=== PATIENT | female | born 1955 | race Two or more races ===

== ENCOUNTER → 2017-01-17 | Outpatient (REF) | payer OTHER | LOC: M LAB REF 11:28 | PROVIDERS: ATTEND Internal Medicine Endocrinology, Diabetes & Metabolism | DX: E04.1 Nontoxic single thyroid nodule (principal) ==

== ENCOUNTER → 2017-03-16 | Outpatient (CLI) | payer OTHER ==
[~2017-03-16] VITALS: Ht 157.5 cm; Wt 64.9 kg
[~2017-03-16] MED LIST: ALEV220T26 PO; ASPI81TAEC PO; ATOR1TAB21 PO; CALC1CAP PO; CALC1CAP31 PO; CALC500C16 PO; FISH5CAP PO; LEVOTH PO; LISI-538 PO; MIRA3350 PO; MULT1TAB10 PO; NS 1,000 ML IV ONE; OMEP20CA3; PROPOFOL 200 MG/20 ML VIAL As Ordered ONE; RANI15TA PO; SYNT112T2 PO
--- NOTE | 2017-03-16 12:30 | ROOR ---
Patient Name: Yefri Capone Procedure Date: 03/16/2017 12:20 PM Date of : 1955 Age: 61 Room: [facility] Gender: Female Note Status: Finalized Procedure: Upper GI endoscopy Indications: Heartburn Providers: Vishal ECHEVERRIA MD Referring MD: Jerad Vidal MD Requesting Provider: Medicines: Monitored Anesthesia Care Complications: No immediate complications. Procedure: Pre-Anesthesia Assessment: - The heart rate, respiratory rate, oxygen saturations, blood pressure, adequacy of pulmonary ventilation, and response to care were monitored throughout the procedure. The Endoscope was introduced through the mouth, and advanced to the second part of duodenum. The upper GI endoscopy was accomplished without difficulty. The patient tolerated the procedure well. Findings: Mildly severe esophagitis was found at the gastroesophageal junction. Biopsies were taken with a cold forceps for histology. Patchy mild inflammation was found in the gastric antrum. Biopsies were taken with a cold forceps for Helicobacter pylori testing. The examined duodenum was normal. Impression: - Mild reflux esophagitis. Biopsied. - Mild patchy gastritis. Biopsied. - Normal examined duodenum. Recommendation: - Telephone endoscopist for pathology results in 2 weeks. - Continue present medications. Vishal Echeverria MD Vishal ECHEVERRIA MD 03/16/2017 12:30:17 PM This report has been signed electronically. Number of Addenda: 0 Note Initiated On: 03/16/2017 12:20 PM Estimated Blood Loss: Estimated blood loss: none.
--- NOTE | 2017-03-16 12:47 | ROOR ---
Patient Name: Yefri Capone Procedure Date: 03/16/2017 12:21 PM Date of : 1955 Age: 61 Room: [facility] Gender: Female Note Status: Finalized Procedure: Colonoscopy Indications: Screening for colorectal malignant neoplasm Providers: Vishal ECHEVERRIA MD Referring MD: Jerad Vidal MD Requesting Provider: Medicines: Monitored Anesthesia Care Complications: No immediate complications. Procedure: Pre-Anesthesia Assessment: - The heart rate, respiratory rate, oxygen saturations, blood pressure, adequacy of pulmonary ventilation, and response to care were monitored throughout the procedure. The Colonoscope was introduced through the anus and advanced to the cecum, identified by appendiceal orifice and ileocecal valve. The colonoscopy was performed without difficulty. The patient tolerated the procedure well. The quality of the bowel preparation was good. Findings: The perianal and digital rectal examinations were normal. A 12 mm polyp was found in the mid ascending colon. The polyp was flat. The polyp was removed with a piecemeal technique using a cold snare. Resection and retrieval were complete. Internal hemorrhoids were found during retroflexion. The hemorrhoids were medium-sized. The exam was otherwise without abnormality on direct and retroflexion views. Impression: - One 12 mm polyp in the mid ascending colon, removed piecemeal using a cold snare. Resected and retrieved. - Moderate Internal hemorrhoids. - The examination was otherwise normal on direct and retroflexion views. Recommendation: - Telephone endoscopist for pathology results in 2 weeks. - Repeat colonoscopy in 3 years for surveillance. Vishal Echeverria MD Vishal ECEHVERRIA MD 03/16/2017 12:47:12 PM This report has been signed electronically. Number of Addenda: 0 Note Initiated On: 03/16/2017 12:21 PM Estimated Blood Loss: Estimated blood loss: none.
[2017-03-16 13:10] VITALS: BP 128/70
== END ==
LOC: M OPP 09:15
PROVIDERS: ATTEND Internal Medicine Gastroenterology
DX: Z12.11 Encounter for screening for malignant neoplasm of colon (principal); K63.5 Polyp of colon; K64.8 Other hemorrhoids; R12 Heartburn; K21.0 Gastro-esophageal reflux disease with esophagitis; K29.70 Gastritis, unspecified, without bleeding; I10 Essential (primary) hypertension; E78.5 Hyperlipidemia, unspecified; Z79.899 Other long term (current) drug therapy

== ENCOUNTER → 2017-04-19 | Outpatient (CLI) | payer OTHER ==
[~2017-04-19] MED LIST changes: -NS 1,000 ML IV ONE; -PROPOFOL 200 MG/20 ML VIAL As Ordered ONE
--- NOTE | 2017-04-19 10:57 | REP ---
PA and lateral chest: There are no comparisons. The lung montaño are clear. The cardiac size is normal The jonas, mediastinum, and bony thorax are unremarkable. Impression: Negative PA and lateral chest. Signed by Freddie Villa MD 04/19/2017 10:48 A
== END ==
LOC: M LRY 09:30
PROVIDERS: ATTEND Family Medicine
DX: Z13.220 Encounter for screening for lipoid disorders (principal)

== ENCOUNTER → 2017-04-19 | Outpatient (REF) | payer OTHER ==
[2017-04-19 12:28] LABS: MEAN CORPUSCULAR HEMOGLOBIN 29.9 pg (27.0-33.0); MEAN CORPUSCULAR HGB CONC 34.1 g/dl (32.0-36.5); MEAN CORPUSCULAR VOLUME 87.7 fl (80.0-96.0); WHITE BLOOD COUNT 6.6 K/mm3 (4.0-10.0)
[2017-04-19 12:31] LABS: INR 0.96
[2017-04-19 12:53] LABS: ALKALINE PHOSPHATASE 96 U/L (45-117); ALT/SGPT 31 U/L (12-78); ANION GAP 8 MEQ/L (8-16); AST/SGOT 20 U/L (15-37); BILIRUBIN,TOTAL 0.7 MG/DL (0.2-1.0); BLOOD UREA NITROGEN 13 MG/DL (7-18); CALCIUM LEVEL 9.5 MG/DL (8.8-10.2); CARBON DIOXIDE LEVEL 28 MEQ/L (21-32); CHLORIDE LEVEL 104 MEQ/L (98-107); CHOLESTEROL LEVEL 164 MG/DL (<200); CREATININE FOR GFR 0.82 MG/DL (0.55-1.02); GLOMERULAR FILTRATION RATE > 60.0 (>45); GLUCOSE, FASTING 79 MG/DL (80-110); POTASSIUM SERUM 4.9 MEQ/L (3.5-5.1); SODIUM LEVEL 140 MEQ/L (136-145); TRIGLYCERIDES LEVEL 131 MG/DL (<150)
[2017-04-19 12:54] LABS: ALBUMIN/GLOBULIN RATIO 0.91 (1.00-1.93); TOTAL PROTEIN 8.4 GM/DL (6.4-8.2)
== END ==
LOC: M SFHCLERA 09:27
PROVIDERS: ATTEND Family Medicine
DX: Z01.818 Encounter for other preprocedural examination (principal); E04.9 Nontoxic goiter, unspecified; Z13.220 Encounter for screening for lipoid disorders

== ENCOUNTER 2017-06-02 17:10 | Inpatient (IN) | payer OTHER ==
[~2017-06-02] VITALS: Ht 157.5 cm; Wt 64.1 kg
[~2017-06-02 17:10] MED LIST changes: -ASPI81TAEC PO; -CALC1CAP PO; -CALC1CAP31 PO; -CALC500C16 PO; -LEVOTH PO; -OMEP20CA3; -SYNT112T2 PO
[2017-06-02] MEDS ORDERED: OMEP20CA3 (17:19)
[2017-06-02] MEDS ORDERED: LEVOTH PO (17:22)
--- NOTE | 2017-06-02 18:18 | REP ---
Chest two views HISTORY: Hypocalcemia Comparison: 04/19/2017 The lungs are clear. The heart is normal in size. The pulmonary vasculature is normal in appearance. The bony structure is intact. IMPRESSION: No acute disease. Signed by Edin Collier MD 06/02/2017 06:10 P
[2017-06-02 19:01] LABS: BASO # 0.1 10^3/uL (0.0-0.2); BASO % 0.7 % (0.0-1.0); EOS # 0.2 10^3/uL (0.0-0.50); EOS % 2.9 % (0.0-3.0); IMMATURE GRANULOCYTE % 0.3 % (0-0); LYMPH # 2.2 10^3/uL (1.5-4.5); MEAN CORPUSCULAR HEMOGLOBIN 28.9 pg (27.0-33.0); MEAN CORPUSCULAR HGB CONC 33.3 g/dl (32.0-36.5); MEAN CORPUSCULAR VOLUME 86.8 fl (80.0-96.0); MONO # 0.7 10^3/uL (0.0-0.8); MONO % 9.4 % (0.0-5.0); NEUTROPHILS % 55.7 % (36.0-66.0); PLATELET COUNT, AUTOMATED 287 10^3/uL (150-450); RED CELL DISTRIBUTION WIDTH 12.3 % (11.5-14.5); WHITE BLOOD COUNT 7.2 10^3/uL (4.0-10.0)
[2017-06-02 19:02] LABS: ADD MORPHOLOGY? NO
[2017-06-02 19:19] LABS: ANION GAP 10 MEQ/L (8-16); BLOOD UREA NITROGEN 11 MG/DL (7-18); CARBON DIOXIDE LEVEL 25 MEQ/L (21-32); CHLORIDE LEVEL 106 MEQ/L (98-107); CREATININE FOR GFR 0.74 MG/DL (0.55-1.02); GLOMERULAR FILTRATION RATE > 60.0 (>45); GLUCOSE, FASTING 100 MG/DL (80-110); PHOSPHORUS LEVEL 6.3 MG/DL (2.5-4.9); POTASSIUM SERUM 4.1 MEQ/L (3.5-5.1); SODIUM LEVEL 141 MEQ/L (136-145)
[2017-06-02 19:24] LABS: CALCIUM LEVEL 5.9 MG/DL (8.8-10.2)
[2017-06-02] MEDS ORDERED: CALCIUM GLUCONATE 1,000 MG in D5W MINI-BAG PLUS 100 ML IV ONE ×2 (19:30→21:00)
[2017-06-02] MEDS ORDERED: SYNT112T2 PO (20:12)
[2017-06-02] MEDS ORDERED: MIRALAX *UNIT DOSE* 17GM PACKET PO PRN (21:00)
[2017-06-02] MEDS ORDERED: ONDANSETRON 4MG/2ML VIAL (J2405) IV PRN (21:15)
[2017-06-02] MEDS ORDERED: ACETAMINOPHEN TAB 650MG DOSE (2X325MG) PO PRN (21:15)
--- NOTE | 2017-06-02 21:52 | HPE ---
DATE OF ADMISSION: 06/02/2017 PRIMARY CARE PROVIDER: Dr. Young Mars. ENT SURGEON: Dr. Nichols. CHIEF COMPLAINT: Paresthesia, numbness and tingling sensation on face, lips, arms, and legs. HISTORY OF PRESENT ILLNESS: This is a 61-year-old female patient with underlying medical history of hypertension, dyslipidemia, recently had a thyroidectomy on 05/04/2017, by Dr. Nichols. Subsequently, the patient was placed on TUMS and was discharged home, but was told to decrease or stop her TUMS by her doctor because her calcium level was okay. Subsequently the patient presented with about one week of progressive worsening numbness of her lips, her hands and her foot, with a tingling and numb sensation. Denies any chest pain, pressure or discomfort, shortness of breath, neurological deficit. Baseline ambulatory, healthy. Denies any tinnitus, palpitations, chest pain. Electrocardiogram (EKG) done in the emergency department (ED) within normal limits. Denies any neck pain, trouble breathing, any sick contact, recent travel. The patient was found to be in severe hypocalcemia in the emergency room. Subsequently request was made for the patient to be admitted. ALLERGIES: No known drug allergies. PAST MEDICAL HISTORY: 1. Hypertension. 2. Dyslipidemia. 3. History of thyroid mass. PAST SURGICAL HISTORY: 1. Cholecystectomy. 2. Thyroidectomy. SOCIAL HISTORY: Denies smoking, drinking alcoholic beverages. Wine occasionally once a month. FAMILY HISTORY: Denies family history of cancer. REVIEW OF SYSTEMS: Facial, lips, arms bilateral, and lower extremities bilateral paresthesia, numbness and tingling. All other review of systems is negative. HOME MEDICATIONS: - Lipitor 20 mg by mouth at bedtime - fish oil one capsule by mouth daily - Synthroid 112 mcg by mouth daily - lisinopril 20 mg by mouth daily - multivitamin one tablet by mouth daily - Aleve 220 mg by mouth as needed - MiraLAX 17 grams by mouth daily as needed - ranitidine 150 mg by mouth twice a day as needed PHYSICAL EXAMINATION: VITAL SIGNS: Temperature 95.3, pulse 87, respirations 16, blood pressure 128/87, pulse oximetry 99% on room air. GENERAL: Patient alert and oriented times three, in no acute distress. HEENT: Normocephalic, atraumatic. NECK: Supple. PULMONARY: Bilaterally clear to auscultation. CARDIAC: Regular rate and rhythm. Normal S1, S2. ABDOMEN: Soft, nontender. Positive bowel sounds. EXTREMITIES: No clubbing, cyanosis or edema. NEUROLOGIC: No focal deficits. ELECTROCARDIOGRAM: EKG showed sinus rhythm at 76 with shortened MS intervals. No ST segment changes. LABORATORY DATA: WBC 7.2, hemoglobin and hematocrit 13.4 over 40.2, platelets 287. Chemistry: Sodium 141, potassium 4.1, chloride 106, bicarbonate 25, BUN 11, creatinine 0.74, calcium 5.9, ionized calcium three. PTH intact. Phosphorus 6.3. IMAGING: Chest x-ray within normal limits. ASSESSMENT AND PLAN: This is a 61-year-old female patient with underlying medical history of hypertension, dyslipidemia, gastroesophageal reflux disease, recently had a thyroidectomy, presented with symptomatic hypocalcemia. 1. Symptomatic hypocalcemia secondary to hypoparathyroidism. Will follow calcium and ionized calcium. Given calcium gluconate 2 grams in the emergency room. Followup calcium ionized calcium, phosphorus, vitamin D 25 hydroxy and 125 dihydroxy, thyroid panel. Urine study has been ordered which includes urine sodium, chloride, potassium, phosphorus and urine calcium and osmo and protein creatinine. Parathyroid hormone (PTH) appreciated. Followup magnesium. Supplement as needed. Patient's phosphorus should decrease with calcium supplementation. If not, will consider phosphorus binding agents in 1-2 days. In the meantime, start the patient on calcium carbonate 1000 mg by mouth three times a day, as well as calcitriol 0.5 mcg by mouth daily with a goal calcium of eight, and ionized calcium of four. Once this number is reached, will consider decreasing the patient's calcium carbonate to a daily dose of 2000 mg by mouth divided over 2-3 times a day. In the meantime we will follow. Given the severe electrolyte abnormality, we will follow the patient on telemetry. 2. Hypertension. Continue angiotension-converting enzyme (MICHELE). Will consider switching MICHELE to hydrochlorothiazide given hypocalcemia. Will followup urine calcium before making the decision. 3. Dyslipidemia. Continue statin. 4. History of thyroid mass, status post thyroidectomy. Will need to followup as outpatient once the patient's acute electrolyte abnormality is resolved with Dr. Nichols. 5. Deep venous thrombosis (DVT) prophylaxis. Lovenox subcutaneous. 6. Constipation. Bowel regimen as prescribed. DISPOSITION: Pending correction of underlying electrolyte abnormality and resolution of patient's symptoms.
[2017-06-02] MEDS: SENOKOT S TAB PO SCH (22:14)
[2017-06-02] MEDS: ATORVASTATIN 20 MG TAB PO SCH (22:14)
[2017-06-02] MEDS: CALCIUM CARBONATE 500 MG CHEW U/D PO SCH (22:15)
[2017-06-02 22:16] LABS: THYROXINE (T4) 10.6 UG/DL (4.5-12.0)
[2017-06-02 22:55] LABS: OSMOLALITY URINE 394 MOSM/KG (500-800)
[2017-06-02 23:17] LABS: PHOSPHOROUS,RANDOM URINE 4.8 MG/DL
[2017-06-02] MEDS: CALCITRIOL 0.25 MCG CAP (S0169) PO SCH (23:45)
[2017-06-03 05:24] VITALS: BP 124/73
[2017-06-03 05:55] LABS: IONIZED CALCIUM 3.4 MG/DL (4.5-5.3)
[2017-06-03 05:57] LABS: MEAN CORPUSCULAR HEMOGLOBIN 28.8 pg (27.0-33.0); MEAN CORPUSCULAR HGB CONC 33.1 g/dl (32.0-36.5); MEAN CORPUSCULAR VOLUME 87.2 fl (80.0-96.0); RED CELL DISTRIBUTION WIDTH 12.5 % (11.5-14.5); WHITE BLOOD COUNT 6.8 10^3/uL (4.0-10.0)
[2017-06-03 06:19] LABS: ANION GAP 7 MEQ/L (8-16); BLOOD UREA NITROGEN 16 MG/DL (7-18); CALCIUM LEVEL 6.6 MG/DL (8.8-10.2); CARBON DIOXIDE LEVEL 30 MEQ/L (21-32); CHLORIDE LEVEL 105 MEQ/L (98-107); CREATININE FOR GFR 0.85 MG/DL (0.55-1.02); GLOMERULAR FILTRATION RATE > 60.0 (>45); GLUCOSE, FASTING 83 MG/DL (80-110); MAGNESIUM LEVEL 1.9 MG/DL (1.8-2.4); POTASSIUM SERUM 4.2 MEQ/L (3.5-5.1); SODIUM LEVEL 142 MEQ/L (136-145)
[2017-06-03] MEDS: LEVOTHYROXINE 112MCG TABLET (0.112MG) PO SCH (06:28)
[2017-06-03 08:00] VITALS: BP 118/73
--- NOTE | 2017-06-03 08:29 | ECGEPIP ---
Stationary ECG Study [facility] - ED Test Date: 2017-06-02 Pat Name: MARIPOSA OLIVAREZ Department: Room: [place] [address] Gender: F Route Clerk: : 1955 Requested By: SHIRLEY BHATIA Order Number: [id number] Reading MD: Sergio Bazan Measurements Intervals [place] Rate: 76 P: 19 TN: 113 QRS: 6 QRSD: 68 T: 9 QT: 423 QTc: 476 Interpretive Statements SINUS RHYTHM WITH SHORT TN INTERVAL INC. RBBB NO PRIORS Electronically Signed On 06-03-2017 8:29:05 EDT by Sergio Bazan
[2017-06-03] MEDS: SENOKOT S TAB PO SCH ×3 (09:00→21:50)
[2017-06-03] MEDS: CALCITRIOL 0.25 MCG CAP (S0169) PO SCH (09:01)
[2017-06-03] MEDS: CALCIUM CARBONATE 500 MG CHEW U/D PO SCH ×3 (09:01→21:50)
[2017-06-03] MEDS: LISINOPRIL 20 MG TAB PO SCH (09:01)
[2017-06-03] MEDS: MULTIVITAMINS/MINERALS THERAP 1 TAB PO SCH (09:01)
[2017-06-03] MEDS: ENOXAPARIN 40 MG/0.4 ML SYRINGE (J1650) SC SCH (09:03)
[2017-06-03 12:00] VITALS: BP 105/65
[2017-06-03 12:12] LABS: IONIZED CALCIUM 3.5 MG/DL (4.5-5.3)
[2017-06-03 12:55] LABS: ANION GAP 6 MEQ/L (8-16); BLOOD UREA NITROGEN 13 MG/DL (7-18); CALCIUM LEVEL 6.5 MG/DL (8.8-10.2); CARBON DIOXIDE LEVEL 32 MEQ/L (21-32); CHLORIDE LEVEL 103 MEQ/L (98-107); CREATININE FOR GFR 0.79 MG/DL (0.55-1.02); GLOMERULAR FILTRATION RATE > 60.0 (>45); GLUCOSE, FASTING 81 MG/DL (80-110); MAGNESIUM LEVEL 1.9 MG/DL (1.8-2.4); PHOSPHORUS LEVEL 6.8 MG/DL (2.5-4.9); POTASSIUM SERUM 3.8 MEQ/L (3.5-5.1); SODIUM LEVEL 141 MEQ/L (136-145)
--- NOTE | 2017-06-03 13:55 | IPNPDOC ---
Text Note Date of Service The patient was seen on 06/03/17. NOTE Subjective: Patient is a 61 year old female with a PMHx of HTN, DLP, and a recent thyroidectomy (05/04/[address] Nichols in [place]) who presented to the ER with complaints of numbness and tingling of her hands and feet. She noted that after the surgery she was advised to take a calcium supplement and calcitriol. After subsequent blood work she was advised to discontinue her medications. She noted that she began to experience symptoms after that. In the ER patient was found to be severely hypocalcemic and hospitalist service was called for admission. Patient was seen and examined at the bedside. She notes that her symptoms have improved significantly, but not resolved. She denies any chest pain, shortness of breath or palpitations. She denies nausea, vomiting, abdominal pain, constipation or diarrhea. Objective: Vitals (See below) General: Lying in bed, no acute distress, comfortable, AAOx3 HEENT: NC, Incision on neck appears clean without evidence of erythema / warmth or tenderness CVS: RRR, +S1S2 Lungs: Fair air entry b/l, -w/r/r Abdomen: Soft, ND, NT Extremities: - Edema, - Calf tenderness Assessment and plan: Numbness and tingling of hands and feet - likely 2/2 symptomatic hypocalcemia 2/ 2 hypoparathyroidism 2/2 thyroid resection (with likely parathyroidectomy) - Presented with symptoms after she was taken off calcium and vitamin D supplementation - Physical un-revealing - Labs indicate severely low calcium and ionized calcium - PTH low, Vitamin D (25-OH) low, Vitamin D (1,25-OH) pending - EKG: NSR, no ST segment deviations or T wave abnormalities - Will check calcium and ionized calcium, will add albumin to q8hour lab work - Will c/w Supplementation with Calcium gluconate 1000mg PO TID and Calcitriol 0.5mcg QD - Will adjust calcium dosing when improved (Serum Ca >8 and Ionized calcium >4) Hyperphosphatemia - will continue to follow - will c/w calcium supplementation, if remains elevated will start binding agent HTN - c/w Lisinopril with holding parameters Recent thyroid resection - No evidence of infection - Surgery performed on 05/04/[address] Nichols in [place] Hypothyroidism - c/w Levothyroxine DLP - c/w Atorvastatin GI prophylaxis - c/w Famotidine DVT prophylaxis - c/w Lovenox VS,Fishbone, I+O VS, Fishbone, I+O Laboratory Tests 06/02/17 18:43 Red Blood Count 4.63, Mean Corpuscular Volume 86.8, Mean Corpuscular Hemoglobin 28.9, Mean Corpuscular Hemoglobin Concent 33.3, Red Cell Distribution Width 12.3 , Neutrophils (%) (Auto) 55.7, Lymphocytes (%) (Auto) 31.0, Monocytes (%) (Auto ) 9.4 H, Eosinophils (%) (Auto) 2.9, Basophils (%) (Auto) 0.7, Neutrophils # ( Auto) 4.0, Lymphocytes # (Auto) 2.2, Monocytes # (Auto) 0.7, Eosinophils # (Auto ) 0.2, Basophils # (Auto) 0.1, Calcium Level 5.9 *L 06/03/17 05:34 Red Blood Count 4.30, Mean Corpuscular Volume 87.2, Mean Corpuscular Hemoglobin 28.8, Mean Corpuscular Hemoglobin Concent 33.1, Red Cell Distribution Width 12.5 , Calcium Level 6.6 L 06/03/17 12:00 Calcium Level 6.5 L Vital Signs Date Time Temp Pulse Resp B/P (MAP) Pulse Ox O2 Delivery O2 Flow Rate FiO2 06/03/17 12:00 97.9 69 16 105/65 (78) 99 Room Air I&O- Last 24 Hours up to 6 AM 06/04/17 06:00 Intake Total 360 ml Balance 360 ml KAYLIE JALLOH MD Jun 03, 2017 13:55
[2017-06-03] MEDS: ASPIRIN 81 MG ENTERIC TAB PO SCH (14:02)
[2017-06-03 16:00] VITALS: BP 112/70
[2017-06-03 20:00] VITALS: BP 119/84
[2017-06-03 21:02] LABS: IONIZED CALCIUM 3.8 MG/DL (4.5-5.3)
[2017-06-03 21:23] LABS: ANION GAP 7 MEQ/L (8-16); BLOOD UREA NITROGEN 16 MG/DL (7-18); CALCIUM LEVEL 7.6 MG/DL (8.8-10.2); CARBON DIOXIDE LEVEL 32 MEQ/L (21-32); CHLORIDE LEVEL 103 MEQ/L (98-107); CREATININE FOR GFR 0.85 MG/DL (0.55-1.02); GLOMERULAR FILTRATION RATE > 60.0 (>45); GLUCOSE, FASTING 107 MG/DL (80-110); MAGNESIUM LEVEL 1.9 MG/DL (1.8-2.4); PHOSPHORUS LEVEL 7.3 MG/DL (2.5-4.9); POTASSIUM SERUM 4.6 MEQ/L (3.5-5.1); SODIUM LEVEL 142 MEQ/L (136-145)
[2017-06-03] MEDS: ATORVASTATIN 20 MG TAB PO SCH (21:50)
[2017-06-04] VITALS: BP 131/66
[2017-06-04 04:00] VITALS: BP 121/67
[2017-06-04 04:19] LABS: MEAN CORPUSCULAR HEMOGLOBIN 29.9 pg (27.0-33.0); MEAN CORPUSCULAR HGB CONC 34.3 g/dl (32.0-36.5); MEAN CORPUSCULAR VOLUME 87.1 fl (80.0-96.0); RED CELL DISTRIBUTION WIDTH 12.2 % (11.5-14.5); WHITE BLOOD COUNT 7.4 10^3/uL (4.0-10.0)
[2017-06-04 04:26] LABS: IONIZED CALCIUM 3.9 MG/DL (4.5-5.3)
[2017-06-04 04:56] LABS: ANION GAP 9 MEQ/L (8-16); BLOOD UREA NITROGEN 17 MG/DL (7-18); CALCIUM LEVEL 7.5 MG/DL (8.8-10.2); CARBON DIOXIDE LEVEL 28 MEQ/L (21-32); CHLORIDE LEVEL 107 MEQ/L (98-107); CREATININE FOR GFR 0.78 MG/DL (0.55-1.02); GLOMERULAR FILTRATION RATE > 60.0 (>45); GLUCOSE, FASTING 88 MG/DL (80-110); POTASSIUM SERUM 4.2 MEQ/L (3.5-5.1); SODIUM LEVEL 144 MEQ/L (136-145)
[2017-06-04 04:57] LABS: ALBUMIN 3.3 GM/DL (3.2-5.2); MAGNESIUM LEVEL 1.8 MG/DL (1.8-2.4); PHOSPHORUS LEVEL 7.8 MG/DL (2.5-4.9)
[2017-06-04] MEDS: LEVOTHYROXINE 112MCG TABLET (0.112MG) PO SCH (05:58)
[2017-06-04 08:00] VITALS: BP 129/74
[2017-06-04] MEDS: LISINOPRIL 20 MG TAB PO SCH (08:37)
[2017-06-04] MEDS: MULTIVITAMINS/MINERALS THERAP 1 TAB PO SCH (08:38)
[2017-06-04] MEDS: CALCITRIOL 0.25 MCG CAP (S0169) PO SCH (08:38)
[2017-06-04] MEDS: FAMOTIDINE 20 MG TAB PO PRN (08:38)
[2017-06-04] MEDS: SENOKOT S TAB PO SCH ×3 (08:38→20:19)
[2017-06-04] MEDS: CALCIUM ACETATE 667 MG GELCAP PO SCH ×3 (08:38→17:06)
[2017-06-04] MEDS: ENOXAPARIN 40 MG/0.4 ML SYRINGE (J1650) SC SCH (08:39)
[2017-06-04] MEDS: ASPIRIN 81 MG ENTERIC TAB PO SCH (08:39)
[2017-06-04] MEDS: CALCIUM CARBONATE 500 MG CHEW U/D PO SCH ×3 (08:39→20:18)
[2017-06-04 12:00] VITALS: BP 123/78
[2017-06-04 12:34] LABS: ALBUMIN 3.4 GM/DL (3.2-5.2); ANION GAP 7 MEQ/L (8-16); BLOOD UREA NITROGEN 16 MG/DL (7-18); CALCIUM LEVEL 7.8 MG/DL (8.8-10.2); CARBON DIOXIDE LEVEL 29 MEQ/L (21-32); CHLORIDE LEVEL 102 MEQ/L (98-107); CREATININE FOR GFR 0.66 MG/DL (0.55-1.02); GLOMERULAR FILTRATION RATE > 60.0 (>45); GLUCOSE, FASTING 75 MG/DL (80-110); MAGNESIUM LEVEL 1.8 MG/DL (1.8-2.4); PHOSPHORUS LEVEL 6.4 MG/DL (2.5-4.9); POTASSIUM SERUM 4.4 MEQ/L (3.5-5.1); SODIUM LEVEL 138 MEQ/L (136-145)
--- NOTE | 2017-06-04 15:19 | IPNPDOC ---
Text Note Date of Service The patient was seen on 06/04/17. NOTE Subjective: Patient is a 61 year old female with a PMHx of HTN, DLP, and a recent thyroidectomy (05/04/[address] Nichols in [place]) who presented to the ER with complaints of numbness and tingling of her hands and feet. She noted that after the surgery she was advised to take a calcium supplement and calcitriol. After subsequent blood work she was advised to discontinue her medications. She noted that she began to experience symptoms after that. In the ER patient was found to be severely hypocalcemic and hospitalist service was called for admission. Patient was seen and examined at the bedside. She notes that her numbness and tingling of her fingers has resolved completed. She denies any other problems. Objective: Vitals (See below) General: Lying in bed, no acute distress, comfortable, AAOx3 HEENT: NC, Incision on neck appears clean without evidence of erythema / warmth or tenderness CVS: RRR, +S1S2 Lungs: Fair air entry b/l, -w/r/r Abdomen: Soft, ND, NT Extremities: - Edema, - Calf tenderness Assessment and plan: Numbness and tingling of hands and feet - likely 2/2 symptomatic hypocalcemia 2/ 2 hypoparathyroidism 2/2 thyroid resection (with likely parathyroidectomy) - Presented with symptoms after she was taken off calcium and vitamin D supplementation; notes improvement throughout hospital course - Physical again is revealing - Labs show improvement in calcium / ionized calcium - PTH low, Vitamin D (25-OH) low, Vitamin D (1,25-OH) pending - EKG: NSR, no ST segment deviations or T wave abnormalities - c/w calcium and ionized calcium q8hour lab work - c/w Calcium gluconate 1000mg PO TID and Calcitriol 0.5mcg QD; awaiting improvement to Serum Ca >8 and Ionized calcium >4 Hyperphosphatemia - Has been trending up - Will start Calcium Acetate with meals now to help improve calcium and phosphorous levels HTN - c/w Lisinopril with holding parameters Recent thyroid resection - No evidence of infection - Surgery performed on 05/04/[address] Nichols in [place] Hypothyroidism - c/w Levothyroxine DLP - c/w Atorvastatin GI prophylaxis - c/w Famotidine DVT prophylaxis - c/w Lovenox VS,Fishbone, I+O VS, Fishbone, I+O Laboratory Tests 06/03/17 20:39 Calcium Level 7.6 #L 06/04/17 04:11 Calcium Level 7.5 L, Red Blood Count 4.42, Mean Corpuscular Volume 87.1, Mean Corpuscular Hemoglobin 29.9, Mean Corpuscular Hemoglobin Concent 34.3, Red Cell Distribution Width 12.2 06/04/17 12:01 Calcium Level 7.8 L Vital Signs Date Time Temp Pulse Resp B/P (MAP) Pulse Ox O2 Delivery O2 Flow Rate FiO2 06/04/17 12:00 96.9 74 18 123/78 (93) 99 Room Air I&O- Last 24 Hours up to 6 AM 06/05/17 06:00 Intake Total 480 ml Balance 480 ml KAYLIE JALLOH MD Jun 04, 2017 15:19
[2017-06-04 16:00] VITALS: BP 120/79
[2017-06-04 19:37] VITALS: BP 121/77
[2017-06-04 19:59] LABS: IONIZED CALCIUM 4.2 MG/DL (4.5-5.3)
[2017-06-04] MEDS: ATORVASTATIN 20 MG TAB PO SCH (20:17)
[2017-06-04 20:32] LABS: ALBUMIN 3.4 GM/DL (3.2-5.2); ANION GAP 5 MEQ/L (8-16); BLOOD UREA NITROGEN 17 MG/DL (7-18); CALCIUM LEVEL 8.3 MG/DL (8.8-10.2); CARBON DIOXIDE LEVEL 33 MEQ/L (21-32); CHLORIDE LEVEL 102 MEQ/L (98-107); CREATININE FOR GFR 0.94 MG/DL (0.55-1.02); GLOMERULAR FILTRATION RATE > 60.0 (>45); GLUCOSE, FASTING 119 MG/DL (80-110); MAGNESIUM LEVEL 1.8 MG/DL (1.8-2.4); PHOSPHORUS LEVEL 6.1 MG/DL (2.5-4.9); POTASSIUM SERUM 4.4 MEQ/L (3.5-5.1); SODIUM LEVEL 140 MEQ/L (136-145)
[2017-06-05] VITALS: BP 115/71
[2017-06-05 03:58] LABS: MEAN CORPUSCULAR HGB CONC 33.2 g/dl (32.0-36.5); MEAN CORPUSCULAR VOLUME 87.4 fl (80.0-96.0); RED CELL DISTRIBUTION WIDTH 12.3 % (11.5-14.5); WHITE BLOOD COUNT 7.9 10^3/uL (4.0-10.0)
[2017-06-05 03:59] LABS: IONIZED CALCIUM 4.4 MG/DL (4.5-5.3)
[2017-06-05 04:00] VITALS: BP 106/68
[2017-06-05 04:15] LABS: ALBUMIN 3.4 GM/DL (3.2-5.2); ANION GAP 5 MEQ/L (8-16); BLOOD UREA NITROGEN 18 MG/DL (7-18); CALCIUM LEVEL 8.5 MG/DL (8.8-10.2); CARBON DIOXIDE LEVEL 31 MEQ/L (21-32); CHLORIDE LEVEL 104 MEQ/L (98-107); CREATININE FOR GFR 0.94 MG/DL (0.55-1.02); GLOMERULAR FILTRATION RATE > 60.0 (>45); GLUCOSE, FASTING 91 MG/DL (80-110); MAGNESIUM LEVEL 1.7 MG/DL (1.8-2.4); PHOSPHORUS LEVEL 6.1 MG/DL (2.5-4.9); POTASSIUM SERUM 4.6 MEQ/L (3.5-5.1); SODIUM LEVEL 140 MEQ/L (136-145)
[2017-06-05] MEDS: LEVOTHYROXINE 112MCG TABLET (0.112MG) PO SCH (06:10)
[2017-06-05 08:00] VITALS: BP 102/64
[2017-06-05] MEDS ORDERED: CALC500C16 PO (08:13)
[2017-06-05] MEDS ORDERED: CALC1CAP31 PO (08:13)
[2017-06-05] MEDS ORDERED: ASPI81TAEC PO (08:13)
[2017-06-05] MEDS ORDERED: CALC1CAP PO (08:13)
[2017-06-05] MEDS: ENOXAPARIN 40 MG/0.4 ML SYRINGE (J1650) SC SCH (08:20)
[2017-06-05] MEDS: CALCITRIOL 0.25 MCG CAP (S0169) PO SCH (08:20)
[2017-06-05] MEDS: CALCIUM CARBONATE 500 MG CHEW U/D PO SCH (08:20)
[2017-06-05 08:21] VITALS: BP 102/64
[2017-06-05] MEDS: MULTIVITAMINS/MINERALS THERAP 1 TAB PO SCH (08:21)
[2017-06-05] MEDS: FAMOTIDINE 20 MG TAB PO PRN (08:21)
[2017-06-05] MEDS: ASPIRIN 81 MG ENTERIC TAB PO SCH (08:21)
[2017-06-05] MEDS: LISINOPRIL 20 MG TAB PO SCH (08:21)
[2017-06-05] MEDS: CALCIUM ACETATE 667 MG GELCAP PO SCH (08:21)
[2017-06-05] MEDS: SENOKOT S TAB PO SCH (08:21)
[2017-06-05] MEDS ORDERED: INFLUENZA QUADRIVALENT PF VACCINE 0.5ML SYRINGE (90686) IM ONE (09:00)
[2017-06-05] MEDS ORDERED: MAG SULF 1GM/100ML (MAG RUN) 1 GM in APPROPRIATE DILUENT 1 EA IV ONE (09:00)
--- NOTE | 2017-06-05 15:58 | DSES ---
DATE OF ADMISSION: 06/02/2017 DATE OF DISCHARGE: 06/05/2017 REFERRING PHYSICIAN: None. CONSULTING PHYSICIAN: None. CONDITION ON DISCHARGE: Stable. FINAL DIAGNOSIS: Symptomatic severe hypocalcemia. PROCEDURES: None. HISTORY OF PRESENT ILLNESS: The patient is a 61-year-old female with a past medical history of hypertension, dyslipidemia, and recent thyroidectomy on 05/04/[address] Nichols in [place]. She presented to the emergency room (ER) with complaints of numbness and tingling of her hands and feet. She noted that after surgery she was advised to take a calcium supplementation as well as calcitriol, but after subsequent blood work, she was advised to discontinue her medications. The patient began to experience symptoms soon after that. HOSPITAL COURSE: 1. Numbness and tingling of hands and feet, likely secondary to symptomatic hypocalcemia, secondary to hyperparathyroidism, secondary to thyroid resection, likely with parathyroidectomy. She presented with symptoms after she was taken off calcium and vitamin D supplementation. Notes improvement throughout the hospital course and complete resolution upon discharge. Physical again is unrevealing. Laboratories show improvement in her calcium and ionized calcium, now within normal ranges. Parathyroid hormone was low. Vitamin D 25-OH is low, vitamin D 125-OH remained pending. EKG was normal sinus rhythm, revealed no ST segment deviations or T wave abnormalities. Continued with calcium and ionized calcium checks every eight hours throughout the hospital course and was discontinued upon normalization. The patient was put on calcium gluconate, calcitriol throughout the hospital course until it had normalized. 2. Hyperphosphatemia. This has been trending upward throughout the hospital course and has been started on calcium acetate. Since that point, the patient's hyperphosphatemia has been trending downward. We will continue this upon discharge. 3. Hypertension. Continue with lisinopril with holding parameters. 4. Recent thyroid resection. No evidence of infection. Surgery was performed on 05/04/[address] Nichols in [place]. 5. Hypothyroidism. Continue with levothyroxine. 6. Dyslipidemia. Continue with atorvastatin. 7. Gastrointestinal (GI) prophylaxis. Continue with famotidine. 8. Deep vein thrombosis (DVT) prophylaxis. Continue with Lovenox. DISCHARGE MEDICATIONS: The patient is being discharged home with the following medication list: - aspirin 81 mg by mouth daily - calcitriol 0.25 mcg by mouth daily - calcium acetate 667 mg by mouth with meals - calcium carbonate 500 mg by mouth four times a day - atorvastatin 20 mg by mouth at bedtime - fish oil one capsule by mouth daily - levothyroxine 112 mcg by mouth daily - lisinopril 20 mg by mouth daily - multivitamin one tablet by mouth daily - polyethylene glycol 17 grams by mouth daily as needed for constipation - ranitidine one tablet by mouth twice a day as needed for heartburn Stopped medications include naproxen. DISCHARGE INSTRUCTIONS: The patient was advised to followup with her primary care provider as well as the surgeon who performed the thyroid resection within the next seven days. She has been advised to remain compliant with treatment plan and medications and return to the emergency room if she experiences any problems. TIME SPENT ON DISCHARGE: Greater than 35 minutes.
== END 2017-06-05 15:53 | disposition home or self-care (01) | DRG 425 ==
LOC: M ED 17:10 → EDBD 17:10 → M ED INP 21:15
PROVIDERS: ADMIT Hospitalist; ATTEND Internal Medicine
DX: E83.51 Hypocalcemia (principal); I10 Essential (primary) hypertension; E78.5 Hyperlipidemia, unspecified; E89.0 Postprocedural hypothyroidism; Z90.49 Acquired absence of other specified parts of digestive tract; Z79.899 Other long term (current) drug therapy; Z79.82 Long term (current) use of aspirin; E83.39 Other disorders of phosphorus metabolism

== ENCOUNTER → 2017-06-13 | Outpatient (REF) | payer OTHER ==
[~2017-06-13] MED LIST changes: +ASPI81TAEC PO; +CALC1CAP PO; +CALC1CAP31 PO; +CALC500C16 PO; +LEVOTH PO; +OMEP20CA3; +SYNT112T2 PO
[2017-06-13 19:29] LABS: IONIZED CALCIUM 4.2 MG/DL (4.5-5.3)
[2017-06-13 19:58] LABS: ALBUMIN 3.5 GM/DL (3.2-5.2); ALBUMIN/GLOBULIN RATIO 0.88 (1.00-1.93); ALKALINE PHOSPHATASE 82 U/L (45-117); ALT/SGPT 33 U/L (12-78); ANION GAP 6 MEQ/L (8-16); AST/SGOT 22 U/L (15-37); BILIRUBIN,TOTAL 0.3 MG/DL (0.2-1.0); BLOOD UREA NITROGEN 16 MG/DL (7-18); CARBON DIOXIDE LEVEL 31 MEQ/L (21-32); CHLORIDE LEVEL 103 MEQ/L (98-107); CREATININE FOR GFR 0.75 MG/DL (0.55-1.02); GLOMERULAR FILTRATION RATE > 60.0 (>45); GLUCOSE, FASTING 109 MG/DL (80-110); POTASSIUM SERUM 4.1 MEQ/L (3.5-5.1); SODIUM LEVEL 140 MEQ/L (136-145); TOTAL PROTEIN 7.5 GM/DL (6.4-8.2)
== END ==
LOC: M SFHCLERA 15:59
PROVIDERS: ATTEND Family Medicine
DX: E83.51 Hypocalcemia (principal)

== ENCOUNTER → 2017-06-15 | Outpatient (REF) | payer OTHER ==
[2017-06-15 17:30] LABS: ALBUMIN 3.5 GM/DL (3.2-5.2); ALKALINE PHOSPHATASE 79 U/L (45-117); ALT/SGPT 29 U/L (12-78); ANION GAP 4 MEQ/L (8-16); AST/SGOT 15 U/L (15-37); BILIRUBIN,TOTAL 0.3 MG/DL (0.2-1.0); BLOOD UREA NITROGEN 13 MG/DL (7-18); CALCIUM LEVEL 8.3 MG/DL (8.8-10.2); CARBON DIOXIDE LEVEL 34 MEQ/L (21-32); CHLORIDE LEVEL 103 MEQ/L (98-107); GLOMERULAR FILTRATION RATE > 60.0 (>45); GLUCOSE, FASTING 81 MG/DL (80-110); PHOSPHORUS LEVEL 5.8 MG/DL (2.5-4.9); POTASSIUM SERUM 4.7 MEQ/L (3.5-5.1); SODIUM LEVEL 141 MEQ/L (136-145); TOTAL PROTEIN 7.4 GM/DL (6.4-8.2)
== END ==
LOC: M SFHCLERA 10:44
PROVIDERS: ATTEND Family Medicine
DX: E83.51 Hypocalcemia (principal)

== ENCOUNTER → 2017-06-20 | Outpatient (CLI) | payer OTHER ==
[2017-06-20 19:20] LABS: CALCIUM LEVEL 10.3 MG/DL (8.8-10.2)
== END ==
LOC: M LRY 11:36
PROVIDERS: ATTEND Registered Nurse
DX: E83.51 Hypocalcemia (principal); E89.0 Postprocedural hypothyroidism